=== PATIENT | female | born 1955 | race African-American/Black ===

== ENCOUNTER 2021-08-07 11:42 | Outpatient (CLI) | payer OTHER | END 2021-08-07 12:04 | disposition home or self-care (01) | LOC: MRI 11:42 | PROVIDERS: ATTEND Physical Medicine & Rehabilitation | DX: M54.59 Other low back pain (principal); M54.16 Radiculopathy, lumbar region; M54.6 Pain in thoracic spine; M54.2 Cervicalgia | CPT/HCPCS: 72148 ==

== ENCOUNTER 2024-12-18 10:06 | Outpatient (CLI) | payer OTHER | END 2024-12-18 10:15 | disposition home or self-care (01) | LOC: MAMO-SONO 10:06 | DX: Z12.31 Encounter for screening mammogram for malignant neoplasm of breast (principal) ==